=== PATIENT | female | born 1940 | race Caucasian/White ===

== ENCOUNTER 2021-12-26 21:11 | Observation (INO) ==
[2021-12-27] MEDS ORDERED: Melatonin 3 MG TABLET PO PRN (00:15)
[2021-12-27] MEDS ORDERED: Naloxone 0.4 MG/ML INJ IVP PRN (00:15)
[2021-12-27] MEDS ORDERED: Acetaminophen 325 MG TABLET PO PRN (00:15)
[2021-12-27] MEDS ORDERED: *HR* HYDROcodone/Acet 5/325 mg TABLET PO PRN (00:15)
[2021-12-27] MEDS ORDERED: Perflutren Lipid Microsphere 1.3 ML in 0.9 % Sodium Chloride 8.7 ML IVP PRN (00:25)
[2021-12-27 01:03] LABS: Hematocrit 35.3 % (35.3-44.9); Hemoglobin 11.9 g/dL (11.5-15.4); Mean Corpuscular HGB Conc 33.7 g/dL (31.6-35.5); Mean Corpuscular Hemoglobin 32.2 pg (28.0-33.3); Mean Corpuscular Volume 95.7 fL (83.0-100.0); Mean Platelet Volume 10.5 fL (9.4-12.4); Platelet Count 238 K/mcL (140-400); Red Blood Count 3.69 M/mcL (3.82-4.97); Red Cell Distribution Width 12.4 % (11.5-14.5); White Blood Count 8.6 K/mcL (4.3-11.1)
[2021-12-27 01:20] LABS: Calcium 8.7 mg/dL (8.6-10.3); Phosphorous 2.4 mg/dL (2.7-4.5); Potassium 3.7 mEq/L (3.5-5.1)
[2021-12-27 01:33] LABS: Thyroid Stimulating Hormone 1.039 mcIU/mL (0.340-5.600)
[2021-12-27] MEDS ORDERED: Calcium Gluconate 1gm/50mL 1 GM/50 ML BAG IVPB ONE (01:55)
[2021-12-27] MEDS ORDERED: Ondansetron 4 MG/2 ML VIAL IVP ONE (02:34)
[2021-12-27] MEDS ORDERED: *HR* LORazepam 2 MG/ML VIAL IM STA (02:54)
[2021-12-27] MEDS ORDERED: Benzonatate 100 MG CAPSULE PO PRN (05:12)
[2021-12-27] MEDS ORDERED: *HR* Dextrose 50 % in Water (Syg) 50 ML SYRINGE IVP PRN (05:14)
[2021-12-27] MEDS ORDERED: D5% in Water 1,000 ML IVC PRN (05:14)
[2021-12-27] MEDS ORDERED: Dextrose 4 GM Chewable Tablets PO PRN ×2 (05:14)
[2021-12-27 07:10] LABS: VBG Ionized Calcium 1.21 mmol/L (1.15-1.35)
[2021-12-27 07:39] LABS: Chol/HDL Ratio 2.1 (0-4.9)
[2021-12-27] MEDS: lisinopriL 10 MG TABLET PO SCH (07:39)
[2021-12-27] MEDS: Aspirin 81 MG TAB.CHEW PO SCH (07:39)
[2021-12-27] MEDS: Chlorhexidine Rinse 15 ML MOUTHWASH MM SCH ×2 (07:39→20:29)
[2021-12-27] MEDS: Multivit/Ca/Min/Fe/FA 1 TAB TABLET PO SCH (07:39)
[2021-12-27 07:44] LABS: Troponin I 0.04 ng/mL (< 0.04)
[2021-12-27 11:27] LABS: Folate 9.5 ng/mL (3.0-16.0); Vitamin B12 < 50 pg/mL (250-1100); Vitamin D 25 Hydroxy 20 ng/mL (30-80)
[2021-12-27 15:35] LABS: Bilirubin,Urine Negative (Negative); Blood,Urine Small (Negative); Clarity,Urine Clear (Clear); Color,Urine Yellow (Yellow); Glucose,Urine (UA) Normal (Normal); Ketones,Urine Negative (Negative); Leukocyte Esterase,Urine Small (Negative); Mucus,Urine Few per lpf (None-Few); Nitrite,Urine Negative (Negative); PH,Urine 6.5 pH Units (5.0-8.0); Protein,Urine 30 mg/dL (Neg-Trace); RBC,Urine 15-30 per hpf (0-3); Specific Gravity,Urine 1.025 (1.010-1.025); Squamous Epithelial Cell,Urine Few per hpf (None-Few); Urobilinogen,Urine Normal (Normal)
[2021-12-28 07:13] VITALS: BP 145/81; PULSE 72; TEMP 97.9; O2SAT 95
[2021-12-28] MEDS: lisinopriL 10 MG TABLET PO SCH (07:46)
[2021-12-28] MEDS: Aspirin 81 MG TAB.CHEW PO SCH (07:46)
[2021-12-28] MEDS: Chlorhexidine Rinse 15 ML MOUTHWASH MM SCH (07:46)
[2021-12-28] MEDS: Multivit/Ca/Min/Fe/FA 1 TAB TABLET PO SCH (07:46)
== END 2021-12-28 14:55 ==
LOC: 3BNU → SUATTDRO 23:42
PROVIDERS: ADMIT Internal Medicine; ATTEND Internal Medicine

== ENCOUNTER 2022-08-21 19:10 | Inpatient (IN) ==
[2022-08-21] MEDS ORDERED: Ondansetron 4 MG/2 ML VIAL IVP PRN (23:02)
[2022-08-21] MEDS ORDERED: *HR* HYDROcodone/Acet 5/325 mg TABLET PO PRN (23:02)
[2022-08-21] MEDS ORDERED: Naloxone 0.4 MG/ML INJ IVP PRN (23:02)
[2022-08-21] MEDS ORDERED: Melatonin 3 MG TABLET PO PRN (23:02)
[2022-08-21] MEDS ORDERED: *HR* OxyCODONE Immed Rel 5 MG TABLET PO PRN (23:02)
[2022-08-21] MEDS ORDERED: Acetaminophen 325 MG TABLET PO PRN (23:02)
[2022-08-21] MEDS ORDERED: Iopamidol - 370 500 ML MLS IVP ONE (23:07)
[2022-08-22] MEDS: *HR* Heparin 5,000 UNIT/ML VIAL SQ SCH ×3 (05:30→21:35)
[2022-08-22] MEDS ORDERED: Clindamycin 900 MG/50 ML 900 MG/50 ML IV.SOLN IVPB ONE (07:24)
[2022-08-22] MEDS ORDERED: Ringers Solution, Lactated 1,000 ML IVC SCH (07:30)
[2022-08-22] MEDS ORDERED: Acetaminophen IV 1,000 MG/100 ML BAG IVPB ONE (08:43)
[2022-08-22] MEDS ORDERED: Famotidine 20 MG/2 ML VIAL IVP ONE (08:43)
[2022-08-22] MEDS ORDERED: *HR* FentaNYL (PF) 100 MCG/2 ML VIAL ONE (09:10)
[2022-08-22] MEDS ORDERED: *HR* Succinylcholine 200 MG/10 ML VIAL IVP ONE (09:10)
[2022-08-22] MEDS ORDERED: *HR* Rocuronium Bromide 50 MG/5 ML VIAL ONE (09:10)
[2022-08-22] MEDS ORDERED: Ondansetron 4 MG/2 ML VIAL ONE (09:11)
[2022-08-22] MEDS ORDERED: Lidocaine -MPF 2% 2 ML VIAL ONE (09:11)
[2022-08-22] MEDS ORDERED: *HR* Propofol 200 MG/20 ML VIAL IVP ONE (09:11)
[2022-08-22] MEDS ORDERED: Vancomycin 1,000 MG VIAL ONE (09:35)
[2022-08-22] MEDS ORDERED: Tranexamic Acid 1,000 MG/10 ML VIAL ONE ×2 (09:52→11:05)
[2022-08-22] MEDS ORDERED: *HR* Promethazine 25 MG/ML VIAL IM PRN (11:37)
[2022-08-22] MEDS ORDERED: MOM Conc 10 ML UD.LIQ PO PRN (11:37)
[2022-08-22] MEDS ORDERED: Naloxone 0.4 MG/ML INJ IVP PRN (11:37)
[2022-08-22] MEDS ORDERED: Ondansetron 4 MG/2 ML VIAL IVP PRN (11:37)
[2022-08-22] MEDS ORDERED: HYDROcodone BIT/Homatropine 5 MG TABLET PO PRN (11:37)
[2022-08-22] MEDS ORDERED: Sennosides 8.6 MG TABLET PO PRN (11:37)
[2022-08-22] MEDS: Ringers Solution, Lactated 1,000 ML IVC SCH (13:58)
[2022-08-22] MEDS: Ascorbic Acid 500 MG TABLET PO SCH (17:02)
[2022-08-22] MEDS: Clindamycin 900 MG/50 ML 900 MG/50 ML IV.SOLN IVPB SCH (17:03)
[2022-08-22] MEDS: Aspirin Enteric Coated 81 MG Tablet PO SCH (21:32)
[2022-08-23] MEDS: Clindamycin 900 MG/50 ML 900 MG/50 ML IV.SOLN IVPB SCH (01:50)
[2022-08-23 04:59] LABS: Basophils % 0.1 %; Hemoglobin 10.9 g/dL (11.5-15.4); Immature Granulocytes % 0.3 % (0-4); Lymphocytes # 1.2 K/mcL (0.6-4.6); Lymphocytes % 8.9 %; Mean Corpuscular HGB Conc 34.1 g/dL (31.6-35.5); Mean Corpuscular Hemoglobin 33.3 pg (28.0-33.3); Mean Corpuscular Volume 97.9 fL (83.0-100.0); Mean Platelet Volume 10.2 fL (9.4-12.4); Monocytes # 0.9 K/mcL (0.0-1.3); Monocytes % 6.7 %; Neutrophils # 11.7 K/mcL (1.6-8.9); Platelet Count 223 K/mcL (140-400); Red Blood Count 3.27 M/mcL (3.82-4.97); Red Cell Distribution Width 13.2 % (11.5-14.5); White Blood Count 13.9 K/mcL (4.3-11.1)
[2022-08-23 05:21] LABS: Calcium 8.5 mg/dL (8.6-10.3); INR 1.2; Potassium 4.2 mEq/L (3.5-5.1); Prothrombin Time 13.7 Seconds (9.4-12.1)
[2022-08-23] MEDS: *HR* Heparin 5,000 UNIT/ML VIAL SQ SCH ×3 (05:52→22:00)
[2022-08-23] MEDS: Ascorbic Acid 500 MG TABLET PO SCH ×2 (07:29→16:53)
[2022-08-23] MEDS: Aspirin Enteric Coated 81 MG Tablet PO SCH ×3 (07:29→20:19)
[2022-08-23] MEDS ORDERED: Multivit/Ca/Min/Fe/FA 1 TAB TABLET PO SCH (09:00)
[2022-08-23] MEDS ORDERED: Barium Sulfate 1 TAB TABLET PO ONE (12:52)
[2022-08-23] MEDS ORDERED: E-Z-HD (BARIUM SULF) SUSPENSION PO ONE (12:52)
[2022-08-23] MEDS ORDERED: E-Z-PAQUE (BARIUM SULF) SUSP 1 BOTTLE PO ONE (12:52)
[2022-08-23 15:01] VITALS: TEMP 97.8
[2022-08-23] MEDS ORDERED: 0.9 % Sodium Chloride 1,000 ML IV SCH (16:45)
[2022-08-23] MEDS: Ringers Solution, Lactated 1,000 ML IVC SCH (17:01)
[2022-08-23 20:37] VITALS: BP 133/81; PULSE 87; O2SAT 96
[2022-08-24] MEDS ORDERED: lisinopriL 10 MG TABLET PO SCH (09:00)
== END 2022-08-23 23:59 | disposition other institution (70) | DRG 522 ==
LOC: 4WAOSI → SUATTDRO 22:09
PROVIDERS: ADMIT Internal Medicine; ATTEND Family Medicine